=== PATIENT | male | born 1990 | race African-American/Black ===

== ENCOUNTER 2018-12-12 14:55 | Emergency (ER) | payer OTHER ==
[~2018-12-12] VITALS: Ht 188 cm; Wt 78.5 kg
[2018-12-12 17:30] VITALS: BP 144/94
[2018-12-12] MEDS ORDERED: traMADol 50 MG TABLET PO ONE (17:30)
[2018-12-12] MEDS ORDERED: TRAM50TA PO (19:58)
[2018-12-12] MEDS ORDERED: MUPI22OI2 TP (19:58)
--- NOTE | 2018-12-12 19:59 | PHYS DOC ---
Past Medical History Past Medical History: No Pertinent History (ANN-MARIE DASH APRN) Past Surgical History: Appendectomy (ANN-MARIE DASH APRN) Alcohol Use: Occasionally Drug Use: None (ANN-MARIE DASH APRN) Adult General Chief Complaint Chief Complaint: FINGER INJURY HPI HPI Patient is a 27 year old AA male who presents to the emergency Department today with complaints of bleeding underneath the nail beds and pain of the distal ends of his second, third, fourth, and fifth digits of his left hand. Patient states he was working at [employer] when a coworker turned on the engine of a car that he was working on and his fingers were stuck in a serpentine belt. Pt states that his last tetanus shot was less than 5 years ago. He also complaints of a laceration to the 3rd digit of his left hand. He currently rates his pain a 7/10 on the pain scale. (ANN-MARIE DASH APRN) Review of Systems Review of Systems Constitutional: Denies fever or chills [] Musculoskeletal: See HPI; reports full ROM of L hand fingers Integument: See HPI Neurologic: Denies focal weakness or sensory changes [] (ANN-MARIE DASH APRN) Current Medications Current Medications Current Medications Medications (Trade) Dose Ordered Sig/Melia Start Time Stop Time Status Last Admin Dose Admin Neomycin/ Polymyxin/ Bacitracin (Triple Antibiotic Ointment) 1 pkt 1X ONCE 12/12/18 20:00 12/12/18 20:01 DC 12/12/18 20:00 1 PKT Tramadol HCl (Ultram) 50 mg 1X ONCE 12/12/18 17:30 12/12/18 17:33 DC 12/12/18 17:44 50 MG (RUSSELL RUEDA DO) Allergies Allergies Allergies Coded Allergies Type Severity Reaction Last Updated Verified acetaminophen Allergy Severe HIVES 12/12/18 Yes (RUSSELL RUEDA DO) Physical Exam Physical Exam Constitutional: Well developed, well nourished, no acute distress, non-toxic appearance. [] HENT: Normocephalic, atraumatic, bilateral external ears normal, nose normal. [] Eyes: conjunctiva normal, no discharge. [] Neck: Normal range of motion, no stridor. [] Skin: Warm, dry; superficial laceration noted to proximal to 3rd nail bed of left hand no active bleeding; subungual hematomas noted to left 3rd, 4th, and 5th digits Extremities: no cyanosis, no clubbing,; distal ends of left fingers 2-5 tender to palpation with full ROM and no deformities noted Neurologic: Alert and oriented X 3, normal motor function, normal sensory function, no focal deficits noted. [] Psychologic: Affect normal, judgement normal, mood normal. [] (ANN-MARIE DASH APRN) Physical Exam Constitutional: Well developed, well nourished, no acute distress, non-toxic appearance. [] Skin: Warm, dry; subungual hematomas noted to left 3rd, 4th, and 5th digits, 3rd fingernail with distal third horizontal crack, no active bleeding, no signs of infection. (RUSSELL RUEDA DO) Current Patient Data Vital Signs Vital Signs Date Time Temp Pulse Resp B/P (MAP) Pulse Ox O2 Delivery O2 Flow Rate FiO2 12/12/18 17:44 16 98 Room Air 12/12/18 17:30 97.5 80 144/94 (111) 97.5 (RUSSELL RUEDA DO) EKG EKG [] (ANN-MARIE DASH APRN) Radiology/Procedures Radiology/Procedures No acute findings on x-ray of left hand fingers read by Dr. Rueda. [] Trephination of subungual hematomas affecting the 3rd, 4th, and 5th digits was performed using a Bovie by this SUGGESTION CLERK. A moderate amount of dark blood drained from each nail bed. The fingers were dressed with non stick telfa and coban by nursing staff following procedure. (ANN-MARIE DASH APRN) Course & Med Decision Making Course & Med Decision Making Pertinent Labs and Imaging studies reviewed. (See chart for details) Dx: superficial laceration of left 3rd digit, Subungual hematomas of left middle , ring, and little fingers, crush injury of left fingers Prescription written for mupirocin ointment and tramadol. Patient verbalized an understanding of home care, medications, follow-up, and return to ED instructions and was in agreement with the plan of care. [] (ANN-MARIE DASH APRN) Dragon Disclaimer Dragon Disclaimer This electronic medical record was generated, in whole or in part, using a voice recognition dictation system. (ANN-MARIE DASH APRN) Departure Departure Impression: Primary Impression: Crushing injury of finger(s) Additional Impressions: Subungual hematoma of left little finger Subungual hematoma of left middle finger Subungual hematoma of left ring finger Superficial laceration of hand Disposition: HOME, SELF-CARE Condition: STABLE Referrals: NO PCP (PCP) Patient Instructions: Crush Injury, Fingers or Toes, [id number], Laceration Care, Adult, [id number], Subungual Hematoma, [id number] Additional Instructions: Fill prescription and use as directed. Change the dressing and apply antibiotic ointment twice daily. Keep fingers clean and dry. Follow up with work comp doctor next week, return to the ER if symptoms worsen. Scripts Tramadol Hcl (TRAMADOL HCL) 50 Mg Tablet 50 MG PO Q6HRS PRN for PAIN for 5 Days, #20 TAB 0 Refills Prov: ANN-MARIE DASH APRN 12/12/18 Mupirocin (MUPIROCIN OINTMENT) 22 Gm Oint...g. 1 KRISTINA TP BID for WOUND CARE for 7 Days, #1 TUBE 0 Refills Prov: ANN-MARIE DASH APRN 12/12/18 Attending Signature Attending Signature I have personally interviewed and examined the patient. All charts, labs, and imaging studies were reviewed. I agree with the PA/SUGGESTION CLERK's findings, exam, and plan. (RUSSELL RUEDA DO) Problem Qualifiers Additional Impressions: Subungual hematoma of left little finger Encounter type: initial encounter Qualified Codes: S60.152A - Contusion of left little finger with damage to nail, initial encounter Superficial laceration of hand Encounter type: initial encounter Laterality: left Qualified Codes: S61.412A - Laceration without foreign body of left hand, initial encounter ANN-MARIE DASH APRN Dec 12, 2018 19:59 RUSSELL RUEDA DO Dec 13, 2018 01:44
[2018-12-12] MEDS ORDERED: NEOMY/BACITR/POLYMYXIN OINT PACKET. TP ONE (20:00)
--- NOTE | 2018-12-13 08:43 | RAD ---
3 view study of the left hand Clinical indications: Crush injury second through fifth digits with swelling and pain. FINDINGS: No acute fracture or dislocation or osteolytic process is seen. Tiny soft tissue calcification is seen within the fourth digit at the level of the PIP joint. IMPRESSION: No acute fracture. Electronically signed by: Brennan Dillon MD (12/13/2018 8:38 AM) [facility]
== END 2018-12-12 20:39 | disposition home or self-care (01) ==
LOC: ER 14:55
DX: S60.152A Contusion of left little finger with damage to nail, initial encounter (principal); S60.132A Contusion of left middle finger with damage to nail, initial encounter; S60.142A Contusion of left ring finger with damage to nail, initial encounter; S61.412A Laceration without foreign body of left hand, initial encounter; Z88.6 Allergy status to analgesic agent; W22.8XXA Striking against or struck by other objects, initial encounter; Y93.89 Activity, other specified; Y92.89 Other specified places as the place of occurrence of the external cause; Y99.8 Other external cause status
CPT/HCPCS: 11740; 73140; 99283-25